=== PATIENT | male | born 1950 | race Caucasian/White ===

== ENCOUNTER 2017-05-03 14:36 | Observation (INO) | payer MEDICARE ==
[2017-05-03] MEDS ORDERED: ONDANSETRON 4 MG/2 ML VIAL IVP PRN (15:12)
[2017-05-03] MEDS ORDERED: PANTOPRAZOLE 40 MG TABLET PO STA (15:49)
[2017-05-03 15:50] LABS: Glucose,Whole Blood 144 mg/dL (75-99)
[2017-05-03] MEDS ORDERED: IPRATROPIUM-ALBUTEROL 3 ML NEB INHALATION PRN (16:01)
--- NOTE | 2017-05-03 16:01 | P.HPIM ---
History of Present Illness H&P Date: 05/03/17 Chief Complaint: Abdominal pain and chest pain 1 month This is a 66-year-old male with a known history of myocardial infarction, coronary artery disease with previous CABG and cardiac stents. Also history of peripheral vascular disease with stent in his left leg, hypertension, hyperlipidemia, diabetes mellitus, COPD, depression, PTSD, bladder and ureteral cancer in 2005. Patient was a direct admit from Dr. Perez's office. He reports having a burning-like sensation in the upper portion of his stomach radiating up into his chest. Symptoms have been intermittent over the last month. However, patient is started have worsening symptoms in the chest area. Also has been having some sweats. Has adjusted his diet. Symptoms were slightly worse with fatty foods. He denies any nausea or vomiting. Denies any fever or chills. Denies any bowel movement changes or urinary symptoms. Patient is still a smoker he smoking about a pack a day. His last stress test was approximately [address] Alford and he was told was negative. His last colonoscopy was in 2014 and was reported negative. He has never had EGD completed. And just recently had medications adjusted by his psychiatrist. They discontinued the Prozac and started patient on Abilify 5 mg daily. He reports that he has not taken the Abilify yet. He was supposed started today. I dose will be given now. Patient will be admitted for cardiac workup to evaluate the chest pain as well as the abdominal discomfort. Cardiology will be consulted. Check EKG troponin cardiac enzymes. Also will check abdominal ultrasound and amylase lipase and LFTs. Review of Systems Please refer to HPI otherwise unremarkable Past Medical History Past Medical History: Asthma, Coronary Artery Disease (CAD), Cancer, COPD, Diabetes Mellitus, Hyperlipidemia, Hypertension, Myocardial Infarction ([place]), Skin Disorder, Sleep Apnea/CPAP/BIPAP Additional Past Medical History / Comment(s): lower back pain with sciatica, hx bladder cancer, pt states skin disorder d/t exposure to agent orange in [place] Last Myocardial Infarction Date:: 1996 History of Any Multi-Drug Resistant Organisms: None Reported Past Surgical History: Bladder Surgery, Coronary Bypass/CABG, Heart Catheterization With Stent Additional Past Surgical History / Comment(s): heart stent x 2, aortogram Past Anesthesia/Blood Transfusion Reactions: No Reported Reaction Date of Last Stent Placement:: 2010 Past Psychological History: Anxiety Smoking Status: Current every day smoker Past Alcohol Use History: None Reported Past Drug Use History: None Reported - Past Family History Mother Family Medical History: Cancer Additional Family Medical History / Comment(s): lung cancer Medications and Allergies Home Medications Medication Instructions Recorded Confirmed Type ALPRAZolam [Xanax] 0.5 mg PO DAILY PRN 06/09/15 12/10/15 History ARIPiprazole [Abilify] 5 mg PO BID 06/09/15 12/10/15 History Aspirin 325 mg PO DAILY 06/09/15 12/10/15 History Atorvastatin [Lipitor] 40 mg PO DAILY 06/09/15 12/10/15 History Budesonide-Formot 160-4.5 Mcg 2 puff INHALATION BID 06/09/15 12/10/15 History [Symbicort 160-4.5 Mcg Inhaler] Clopidogrel [Plavix] 75 mg PO DAILY 06/09/15 12/10/15 History Doxazosin Mesylate 8 mg PO BID 06/09/15 12/10/15 History Enalapril Maleate [Vasotec] 5 mg PO BID 06/09/15 12/10/15 History Fenofibrate [Lofibra] 160 mg PO DAILY 06/09/15 12/10/15 History Insulin Aspart [NovoLOG] 10 unit SQ AC-SUPPER 06/09/15 12/10/15 History Insulin Glargine [Lantus] 70 unit SQ BID 06/09/15 12/10/15 History Metoprolol Tartrate [Lopressor] 25 mg PO BID 06/09/15 12/10/15 History Sertraline [Zoloft] 50 mg PO BID 06/09/15 12/10/15 History Tiotropium [place] [Spiriva] 2 puff IH BID 06/09/15 12/10/15 History Albuterol Inhaler [Ventolin Hfa 1 - 2 puff INHALATION Q6HR PRN 11/11/15 History Inhaler] Albuterol Nebulized [Ventolin 2.5 mg INHALATION Q6H 11/11/15 12/10/15 History Nebulized] Testosterone Cypionate 100 mg IM Q21D 11/11/15 12/10/15 History [Depo-Testosterone] hydrOXYzine HCL 25 mg PO HS 11/11/15 12/10/15 History oxyCODONE-APAP 10-325MG [Percocet 1 tab PO Q6HR PRN 11/11/15 12/10/15 History 10-325 mg] traZODone HCL [Desyrel] 50 mg PO HS 11/11/15 12/10/15 History Allergies Allergy/AdvReac Type Severity Reaction Status Date / Time cephalexin monohydrate Allergy Unknown Verified 12/10/15 07:36 [From Keflex] divalproex sodium Allergy Unknown Verified 12/10/15 07:36 erythromycin base Allergy Unknown Verified 12/10/15 07:36 fluvoxamine maleate Allergy Unknown Verified 12/10/15 07:36 [From Luvox] mirtazapine Allergy Unknown Verified 12/10/15 07:36 moxifloxacin HCl Allergy Itching Verified 12/10/15 07:36 [From Avelox] paroxetine HCl [From Paxil] Allergy Unknown Verified 12/10/15 07:36 Penicillins Allergy Unknown Verified 12/10/15 07:36 Sulfa (Sulfonamide Allergy Unknown Verified 12/10/15 07:36 Antibiotics) venlafaxine Allergy Unknown Verified 12/10/15 07:36 zolpidem Allergy Unknown Verified 12/05/15 10:56 Physical Exam Vitals: Intake and Output 05/03/17 05/03/17 05/03/17 06:59 14:59 22:59 Other: Weight 117.2 kg Patient Weight 05/04/17 06:59 Weight 117.2 kg Head normocephalic Neck supple Lungs wheezes noted in the right lung hunter Heart regular rate and rhythm S1-S2, no rub or gallop Abdomen is soft epigastric tenderness nondistended positive bowel sounds no hepatosplenomegaly Extremities no edema Neuro alert and orientated to 3 Assessment and Plan Assessment: 1. Chest pain: Check cardiac enzymes every 8 hours 3 sets. Check EKG, check chest x-ray, place patient on telemetry. Consult cardiology. 2. Epigastric abdominal pain: Check abdominal ultrasound. Check amylase and lipase and LFTs. Patient has never had an EGD 3. Nicotine dependence: Discussed smoking cessation for greater than 3 minutes. Add nicotine patch 4. History of myocardial infarction, coronary artery disease with previous cardiac stents and CABG 5. History of peripheral vascular disease with stent in the left lower extremity 6. COPD: Stable. Continue inhalers and nebulizer treatments 7. Chronic back pain area did resume home pain medication 8. Essential hypertension: Resume home blood pressure medications 9. Hyperlipidemia 10. History of bladder and ureter cancer status post surgical treatment in 2005 11. Diabetes mellitus type 2: Resume home insulin and add sliding scale coverage 12. Posttraumatic stress disorder: Resume Abilify GI prophylaxis Protonix and DVT prophylaxis subcu heparin Time with Patient: Greater than 30 (Greater than 50% of the total time spent in counseling and coordination of care.I performed an examination of the patient and discussed their management with the physician Massage Operator. I have reviewed the Physician Massage Operator's notes and agree with the documented findings and plan of care)
[2017-05-03 16:45] LABS: Basophils % (A) 1 %; CH 31.9; Eosinophils # (A) 0.2 k/uL (0-0.7); Eosinophils % (A) 2 %; HCT 50.2 % (39.0-53.0); HDW 2.56; HGB 16.3 gm/dL (13.0-17.5); Luc # (Auto) 0.09; Luc % (Auto) 1; Lymphocytes # (A) 1.8 k/uL (1.0-4.8); Lymphocytes % (A) 20 %; MCH 31.5 pg (25.0-35.0); MCHC 32.5 g/dL (31.0-37.0); MCV 97.1 fL (80.0-100.0); Mean Platelet Volume 8.6; Monocytes # (A) 0.4 k/uL (0-1.0); Monocytes % (A) 5 %; Neutrophils # (A) 6.3 k/uL (1.3-7.7); Neutrophils % (A) 71 %; RBC 5.18 m/uL (4.30-5.90); RDW 14.8 % (11.5-15.5); WBC 8.8 k/uL (3.8-10.6)
[2017-05-03 16:51] LABS: ALT 68 U/L (21-72); AST 41 U/L (17-59); Alkaline Phosphatase 44 U/L (38-126); Amylase 55 U/L (30-110); Anion Gap 10 mmol/L; Blood Urea Nitrogen 22 mg/dL (9-20); Calcium 9.7 mg/dL (8.4-10.2); Carbon Dioxide 24 mmol/L (22-30); Chloride 107 mmol/L (98-107); Glucose 130 mg/dL (74-99); Non-African American GFR(MDRD) 51 (>60 ml/min/1.73 sqM); Potassium 4.5 mmol/L (3.5-5.1); Sodium 141 mmol/L (137-145); Total Bilirubin 0.4 mg/dL (0.2-1.3); Total Protein 7.1 g/dL (6.3-8.2)
[2017-05-03 17:02] LABS: Creatine Kinase 56 U/L (55-170)
[2017-05-03 17:15] LABS: Creatine Kinase MB 1.6 ng/mL (0.0-2.4); Troponin I <0.012 ng/mL (0.000-0.034)
[2017-05-03] MEDS ORDERED: NITROGLYCERIN SL TABS 0.4 MG TAB SUBLINGUAL PRN (17:28)
[2017-05-03] MEDS: NICOTINE 21MG/24HR PATCH TRANSDERM SCH (17:41)
[2017-05-03] MEDS: HEPARIN SODIUM,PORCINE 5,000 UNIT/ML 1 ML VIAL SQ SCH (19:53)
[2017-05-03] MEDS: ARIPiprazole 5 MG TAB PO SCH (19:53)
[2017-05-03] MEDS: DOCUSATE 100 MG CAP PO SCH (19:53)
[2017-05-03] MEDS: METOPROLOL TARTRATE 25 MG TAB PO SCH (19:54)
[2017-05-03] MEDS: LISINOPRIL 10 MG TAB PO SCH (19:54)
[2017-05-03] MEDS: SYMBICORT 160-4.5 MCG INHALER INHALATION SCH (20:36)
[2017-05-03] MEDS: IPRATROPIUM-ALBUTEROL 3 ML NEB INHALATION SCH (20:37)
[2017-05-03] MEDS ORDERED: DOXAZOSIN 4 MG TAB PO SCH (21:00)
[2017-05-03] MEDS ORDERED: traZODone HCL 50 MG TAB PO SCH (21:00)
[2017-05-03] MEDS ORDERED: hydrOXYzine HCL 25 MG TAB PO SCH (21:00)
[2017-05-03 21:07] LABS: Glucose,Whole Blood 204 mg/dL (75-99)
[2017-05-03] MEDS: INSULIN GLARGINE 100 UNIT/ML 10 ML VIAL SQ SCH (21:19)
[2017-05-03] MEDS: INSULIN LISPRO (humaLOG) 300 UNIT/3 ML VIAL SQ SCH (21:20)
[2017-05-03] MEDS: oxyCODONE-APAP 10-325MG 1 EACH TAB PO PRN (22:30)
[2017-05-04 00:09] VITALS: RESP 18
[2017-05-04 00:17] LABS: Creatine Kinase 56 U/L (55-170)
[2017-05-04 00:28] LABS: Creatine Kinase MB 1.4 ng/mL (0.0-2.4); Troponin I <0.012 ng/mL (0.000-0.034)
[2017-05-04 06:46] LABS: Glucose,Whole Blood 99 mg/dL (75-99)
[2017-05-04] MEDS: oxyCODONE-APAP 10-325MG 1 EACH TAB PO PRN (06:48)
[2017-05-04] MEDS: SYMBICORT 160-4.5 MCG INHALER INHALATION SCH (07:17)
[2017-05-04] MEDS: IPRATROPIUM-ALBUTEROL 3 ML NEB INHALATION SCH ×2 (07:17→11:12)
[2017-05-04] MEDS ORDERED: PANTOPRAZOLE 40 MG TABLET PO SCH (07:30)
[2017-05-04 07:43] LABS: Basophils # (A) 0.1 k/uL (0-0.2); Basophils % (A) 1 %; CH 32.6; CHCM 33.6; Eosinophils # (A) 0.2 k/uL (0-0.7); Eosinophils % (A) 2 %; HCT 47.6 % (39.0-53.0); HDW 2.69; HGB 15.4 gm/dL (13.0-17.5); Luc # (Auto) 0.08; Luc % (Auto) 1; Lymphocytes % (A) 25 %; MCH 31.5 pg (25.0-35.0); MCHC 32.3 g/dL (31.0-37.0); MCV 97.5 fL (80.0-100.0); Mean Platelet Volume 7.7; Monocytes # (A) 0.4 k/uL (0-1.0); Monocytes % (A) 5 %; Neutrophils # (A) 5.2 k/uL (1.3-7.7); Neutrophils % (A) 66 %; RBC 4.88 m/uL (4.30-5.90); RDW 13.3 % (11.5-15.5); WBC 7.9 k/uL (3.8-10.6); WBC (Perox) 7.79
[2017-05-04] MEDS ORDERED: NON-FORMULARY DRUG (Tiotropium Bromide [Spiriva] 1 CAP) INHALATION SCH (08:00)
[2017-05-04 08:01] LABS: Calcium 9.8 mg/dL (8.4-10.2); Creatine Kinase 60 U/L (55-170); Potassium 4.3 mmol/L (3.5-5.1); Total Bilirubin 0.3 mg/dL (0.2-1.3); Total Protein 6.3 g/dL (6.3-8.2)
--- NOTE | 2017-05-04 08:05 | XR ---
EXAMINATION TYPE: XR chest 2V DATE OF EXAM: 05/03/2017 COMPARISON: Prior chest x-ray 11/16/2009 HISTORY: Chest pain TECHNIQUE: Frontal and lateral views of the chest are obtained. FINDINGS: There is no focal air space opacity, pleural effusion, or pneumothorax seen. The cardiac silhouette size is stable. Patient is post median sternotomy. There are overlying cardiac leads. Lung s are hyperinflated possibly due to COPD. The osseous structures are intact. IMPRESSION: No acute cardiopulmonary process.
[2017-05-04 08:13] LABS: Creatine Kinase MB 1.6 ng/mL (0.0-2.4); Troponin I <0.012 ng/mL (0.000-0.034)
--- NOTE | 2017-05-04 08:37 | US ---
EXAMINATION TYPE: US abdomen complete DATE OF EXAM: 05/04/2017 COMPARISON: NONE CLINICAL HISTORY: Abdominal pain. EXAM MEASUREMENTS: Liver Length: 22.3 cm Gallbladder Wall: 0.1 cm CBD: 0.2 cm Spleen: 12.8 cm Right Kidney: 12.7 x 5.7 x 5.3 cm Left Kidney: 9.7 x 4.9 x 5.0 cm Patient of large body habitus carrying most of his weight in his abdomen. Extensive overlying bowel gas Pancreas: not visualized Liver: unable to penetrate, hyperechoic coarsened echotexture, enlarged Gallbladder: wnl Evidence for sonographic Iniguez's sign: no CBD: wnl Spleen: wnl Right Kidney: wnl Left Kidney: measures small compared to right, lobular contour Upper IVC: wnl Abd Aorta: unable to visualized due to large abdomen and overlying bowel gas The intrahepatic portion of the IVC and proximal abdominal aorta are within normal limits. There is no evidence of cholelithiasis. Common bile duct is unremarkable. The spleen is unremarkable. Kidne ys are symmetric and free of hydronephrosis. No renal lesions are seen. IMPRESSION: 1. At least moderate if not severe hepatic steatosis. 2. Limited visualization of the abdominal aorta and nonvisualization of the pancreas due to overlyin g bowel gas.
[2017-05-04] MEDS ORDERED: FAMOTIDINE 20 MG TAB PO SCH (09:00)
[2017-05-04] MEDS ORDERED: ATORVASTATIN 40 MG TAB PO SCH (09:00)
[2017-05-04] MEDS ORDERED: ASPIRIN 325 MG TAB PO SCH (09:00)
[2017-05-04] MEDS ORDERED: CLOPIDOGREL 75 MG TAB PO SCH (09:00)
[2017-05-04] MEDS ORDERED: FENOFIBRATE 160 MG TAB PO SCH (09:00)
[2017-05-04] MEDS: INSULIN LISPRO (humaLOG) 300 UNIT/3 ML VIAL SQ SCH ×2 (10:19→11:31)
[2017-05-04 10:29] LABS: Glucose,Whole Blood 114 mg/dL (75-99)
[2017-05-04] MEDS ORDERED: ACETAMINOPHEN TAB 325 MG TAB PO PRN (10:52)
[2017-05-04 11:12] VITALS: BP 117/56; TEMP 97.8
[2017-05-04] MEDS: DOCUSATE 100 MG CAP PO SCH (11:12)
[2017-05-04] MEDS: ARIPiprazole 5 MG TAB PO SCH (11:12)
[2017-05-04] MEDS: NICOTINE 21MG/24HR PATCH TRANSDERM SCH (11:15)
[2017-05-04] MEDS: INSULIN GLARGINE 100 UNIT/ML 10 ML VIAL SQ SCH (11:17)
[2017-05-04 11:25] VITALS: PULSE 56
[2017-05-04] MEDS: HEPARIN SODIUM,PORCINE 5,000 UNIT/ML 1 ML VIAL SQ SCH (11:31)
--- NOTE | 2017-05-04 11:47 | CONS ---
CONSULTATION Mr. Romero is a 66-year-old male with a known history of coronary artery disease, who presented with abdominal discomfort radiating to the chest. He has underwent coronary bypass grafting in 1996 with single saphenous vein graft to the right coronary artery and subsequently underwent stenting of his mid LAD in 2003 and proximal LAD in 2010 using a drug-eluting stent. He has been complaining of the abdominal discomfort going on for the last few days and worse yesterday with some radiation to the chest. The discomfort is different from his anginal pain. He denies any dizziness or palpitation. He denies any syncope. He has chronic dyspnea on exertion. His activity is limited. He feels fatigued. He has no significant peripheral edema. No PND, orthopnea. He has underwent an echocardiogram in December of this year that revealed ejection fraction 55% with a mild mitral regurgitation. He has underwent a stress test performed in November that showed a partially reversible inferoapical wall defect that could represent soft tissue attenuation. The possibility of cardiac catheterization was discussed with the patient, who was in favor of continuing medical therapy. His coronary risk factors are positive for hypertension, hyperlipidemia, peripheral vascular disease, and diabetes mellitus in addition to chronic tobacco use. MEDICATIONS: His medication at home include: 1. Metoprolol tartrate 25 mg twice a day. 2. Insulin. 3. Fenofibrate. 4. Enalapril. 5. Doxazosin. 6. Colace. 7. Plavix. 8. Lipitor 40 mg daily. 9. Aspirin once a day. 10.Albuterol. 11.In addition to Abilify. REVIEW OF SYSTEMS: RESPIRATORY system: He has dyspnea on exertion with chronic wheezing and occasional cough. GI system: He has the abdominal pain and the heartburn. No recent GI bleeding. No peptic ulcer disease. system: No dysuria or hematuria. Nervous system: No history of seizure. PAST MEDICAL HISTORY: Past surgical history remarkable for coronary artery bypass grafting, percutaneous revascularization, lower extremities revascularization. Past medical history remarkable for history of depression and anxiety. PHYSICAL EXAMINATION: He is a 66-year-old male, alert, oriented, in no apparent distress. Blood pressure 148/70 with a heart in the 60s. HEAD: Normocephalic. Eyes sclerae nonicteric. Neck good upstroke. No bruit. No jugular distention. Lungs decreased air exchange with scattered rhonchi. No wheezes heart rate rhythm S1, S2. No S3 with systolic murmur is heard at the base. No diastolic murmur. No rub. ABDOMEN: Soft, obese, positive bowel sounds. Mild generalized tenderness in the right upper and left upper quadrant. EXTREMITIES: No edema. Decreased distal pulses. LAB DATA: Ultrasound of the abdomen showed severe hepatic steatosis. Troponin of less than 0.012 for 3 samples. BUN creatinine 24 and 1.48, potassium 4.3, hemoglobin of 15.4, white blood cell of 7.9. EKG revealed a sinus mechanism with a normal axis and no acute changes. A chest x-ray shows no acute infiltrate. IMPRESSION: 1. Abdominal discomfort with some radiation to the chest. No clear evidence to suggest cardiac etiology. 2. History of coronary artery disease status post bypass grafting and percutaneous revascularization. 3. History of peripheral vascular disease. 4. Hypertension. 5. Hyperlipidemia. 6. Diabetes mellitus. 7. Chronic tobacco use. RECOMMENDATION: From the cardiac standpoint, no further cardiac workup is needed at this time. Will await further workup regarding his abdominal findings. He will be followed in the office as scheduled. Thank you for this consult. We will follow with you. MMODL / IJN: [id number] /
[2017-05-04] MEDS: LISINOPRIL 10 MG TAB PO SCH (12:07)
[2017-05-04] MEDS: METOPROLOL TARTRATE 25 MG TAB PO SCH (12:07)
[2017-05-04 12:16] LABS: Glucose,Whole Blood 122 mg/dL (75-99)
--- NOTE | 2017-05-05 10:45 | P.DS ---
Providers Date of admission: 05/03/17 15:03 Expected date of discharge: 05/04/17 Attending physician: Iván Perez Consults: 05/03/17 15:09 Consult Physician Routine Consulting Provider: Iglesia Johnson Consult Reason/Comments: chest pain Do you want consulting provider notified?: Yes Primary care physician: Iván Perez [facility] Course: Discharge diagnosis Patient left AGAINST MEDICAL ADVICE 1. Chest pain: Cardiac enzymes negative 3 sets. Patient seen and evaluated by cardiology. No further cardiac workup needed. [place] symptoms were related more to his abdominal discomfort or chest x-ray negative 2. Epigastric abdominal pain: Amylase lipase and LFTs within normal range. Abdominal ultrasound at least moderate if not severe hepatic steatosis 3. Nicotine dependence: Discussed smoking cessation for greater than 3 minutes. Add nicotine patch 4. History of myocardial infarction, coronary artery disease with previous cardiac stents and CABG 5. History of peripheral vascular disease with stent in the left lower extremity 6. COPD: Stable. Continue inhalers and nebulizer treatments 7. Chronic back pain area did resume home pain medication 8. Essential hypertension: Resume home blood pressure medications 9. Hyperlipidemia 10. History of bladder and ureter cancer status post surgical treatment in 2005 11. Diabetes mellitus type 2: Resume home insulin and add sliding scale coverage 12. Posttraumatic stress disorder: Resume [facility] course This is a 66-year-old male with a known history of myocardial infarction, coronary artery disease with previous CABG and cardiac stents. Also history of peripheral vascular disease with stent in his left leg, hypertension, hyperlipidemia, diabetes mellitus, COPD, depression, PTSD, bladder and ureteral cancer in 2005. Patient was a direct admit from Dr. Perez's office. He reports having a burning-like sensation in the upper portion of his stomach radiating up into his chest. Symptoms have been intermittent over the last month. However, patient is started have worsening symptoms in the chest area. Also has been having some sweats. Has adjusted his diet. Symptoms were slightly worse with fatty foods. He denies any nausea or vomiting. Denies any fever or chills. Denies any bowel movement changes or urinary symptoms. Patient is still a smoker he smoking about a pack a day. His last stress test was approximately [address] Alford and he was told was negative. His last colonoscopy was in 2014 and was reported negative. He has never had EGD completed. And just recently had medications adjusted by his psychiatrist. They discontinued the Prozac and started patient on Abilify 5 mg daily. He reports that he has not taken the Abilify yet. He was supposed started today. I dose will be given now. Patient will be admitted for cardiac workup to evaluate the chest pain as well as the abdominal discomfort. Cardiology will be consulted. Check EKG troponin cardiac enzymes. Also will check abdominal ultrasound and amylase lipase and LFTs. Troponins were negative 3 sets. Patient seen evaluated by cardiology. They felt that there is no further need of cardiac workup. I recommended further workup for GI symptoms. Patient was following up with cardiology as scheduled outpatient. Patient was given a be discharged later this afternoon however, he left AGAINST MEDICAL ADVICE before Dr. Perez to get back to the hospital to discharge Please note that I am dictating this report for Dr. Perez. I did not see her exam and the patient the day he left the hospital Patient Condition at Discharge: Stable Plan - Discharge Summary Discharge Rx Participant: No New Discharge Prescriptions: No Action Insulin Glargine [Lantus] 70 unit SQ BID Doxazosin Mesylate 8 mg PO HS Budesonide-Formot 160-4.5 Mcg [Symbicort 160-4.5 Mcg Inhaler] 2 puff INHALATION RT-BID Atorvastatin [Lipitor] 40 mg PO DAILY Fenofibrate [Lofibra] 160 mg PO DAILY Metoprolol Tartrate [Lopressor] 25 mg PO BID Enalapril Maleate [Vasotec] 5 mg PO BID Clopidogrel [Plavix] 75 mg PO DAILY Aspirin 325 mg PO DAILY Tiotropium [place] [Spiriva] 1 cap INHALATION RT-DAILY Insulin Aspart [NovoLOG] See Protocol SQ AC-TID oxyCODONE-APAP 10-325MG [Percocet 10-325 mg] 1 tab PO Q8H PRN PRN Reason: Pain traZODone HCL [Desyrel] 50 mg PO HS Albuterol Nebulized [Ventolin Nebulized] 2.5 mg INHALATION RT-QID PRN PRN Reason: Shortness Of Breath Albuterol Inhaler [Ventolin Hfa Inhaler] 1 - 2 puff INHALATION RT-QID PRN PRN Reason: Shortness Of Breath hydrOXYzine HCL 25 mg PO HS Nitroglycerin Sl Tabs [Nitrostat] 0.4 mg SUBLINGUAL Q5M PRN PRN Reason: Chest Pain Docusate [Colace] 100 mg PO BID Discharge Medication List Aspirin 325 mg PO DAILY 06/09/15 [History] Atorvastatin [Lipitor] 40 mg PO DAILY 06/09/15 [History] Budesonide-Formot 160-4.5 Mcg [Symbicort 160-4.5 Mcg Inhaler] 2 puff INHALATION RT-BID 06/09/15 [History] Clopidogrel [Plavix] 75 mg PO DAILY 06/09/15 [History] Doxazosin Mesylate 8 mg PO HS 06/09/15 [History] Enalapril Maleate [Vasotec] 5 mg PO BID 06/09/15 [History] Fenofibrate [Lofibra] 160 mg PO DAILY 06/09/15 [History] Insulin Aspart [NovoLOG] See Protocol SQ AC-TID 06/09/15 [History] Insulin Glargine [Lantus] 70 unit SQ BID 06/09/15 [History] Metoprolol Tartrate [Lopressor] 25 mg PO BID 06/09/15 [History] Tiotropium [place] [Spiriva] 1 cap INHALATION RT-DAILY 06/09/15 [History] Albuterol Inhaler [Ventolin Hfa Inhaler] 1 - 2 puff INHALATION RT-QID PRN [History] Albuterol Nebulized [Ventolin Nebulized] 2.5 mg INHALATION RT-QID PRN 11/11/15 [ History] hydrOXYzine HCL 25 mg PO HS 11/11/15 [History] oxyCODONE-APAP 10-325MG [Percocet 10-325 mg] 1 tab PO Q8H PRN 11/11/15 [History] traZODone HCL [Desyrel] 50 mg PO HS 11/11/15 [History] Docusate [Colace] 100 mg PO BID 05/03/17 [History] Nitroglycerin Sl Tabs [Nitrostat] 0.4 mg SUBLINGUAL Q5M PRN 05/03/17 [History] Follow up Appointment(s)/Referral(s): Leodan Alford MD [STAFF PHYSICIAN] - As Needed Iván Perze MD [Primary Care Provider] - 3 Days Patient Instructions/Handouts: Chest Pain (GEN), Acute Abdominal Pain (GEN) Discharge Disposition: HOME SELF-CARE
== END 2017-05-04 14:35 | disposition home or self-care (01) ==
LOC: 3OBS 15:03
PROVIDERS: ADMIT Internal Medicine; ATTEND Internal Medicine
DX: R07.89 Other chest pain (principal); R10.13 Epigastric pain; I25.10 Atherosclerotic heart disease of native coronary artery without angina pectoris; I10 Essential (primary) hypertension; E11.51 Type 2 diabetes mellitus with diabetic peripheral angiopathy without gangrene; Z95.820 Peripheral vascular angioplasty status with implants and grafts; J44.9 Chronic obstructive pulmonary disease, unspecified; G89.29 Other chronic pain; M54.5 Low back pain; E78.5 Hyperlipidemia, unspecified; F17.200 Nicotine dependence, unspecified, uncomplicated; F43.10 Post-traumatic stress disorder, unspecified; F32.9 Major depressive disorder, single episode, unspecified; F41.9 Anxiety disorder, unspecified; Z85.51 Personal history of malignant neoplasm of bladder; Z95.5 Presence of coronary angioplasty implant and graft; Z95.1 Presence of aortocoronary bypass graft; I25.2 Old myocardial infarction; Z85.54 Personal history of malignant neoplasm of ureter; Z79.02 Long term (current) use of antithrombotics/antiplatelets; Z79.82 Long term (current) use of aspirin; Z79.4 Long term (current) use of insulin; Z79.51 Long term (current) use of inhaled steroids; Z79.899 Other long term (current) drug therapy; Z88.0 Allergy status to penicillin; Z88.1 Allergy status to other antibiotic agents; Z88.2 Allergy status to sulfonamides; Z88.8 Allergy status to other drugs, medicaments and biological substances
CPT/HCPCS: 96374; 96375; 94640 ×4; 80053 ×2; 82150; 82550 ×2; 82553 ×2; 83690; 84484 ×2; 85025 ×2; 83036; 71020; 76700; G0378 ×2; G0379; S4990 ×2; J1644; J2405; 93005

== ENCOUNTER → 2017-07-07 | Outpatient (CLI) | payer MEDICARE ==
--- NOTE | 2017-07-08 07:08 | US ---
EXAMINATION TYPE: US venous doppler duplex LE LT DATE OF EXAM: 07/07/2017 5:18 PM COMPARISON: NONE CLINICAL HISTORY: M79.62 Pain, Swelling R22.42. SIDE PERFORMED: Left TECHNIQUE: The lower extremity deep venous system is examined utilizing real time linear array sonog hal with graded compression, doppler sonography and color-flow sonography. VESSELS IMAGED: External Iliac Vein (EIV) Common Femoral Vein Deep Femoral Vein Greater Saphenous Vein * Femoral Vein Popliteal Vein Small Saphenous Vein * Proximal Calf Veins (* superficial vessels) Grayscale, color doppler, spectral doppler imaging performed of the deep veins of the lower extremiti es. There is normal flow, compressibility, vascular waveforms. Left Leg: Negative for DVT No evidence of DVT IMPRESSION: No sonographic evidence of deep venous thrombosis within the left lower extremity.
== END | disposition home or self-care (01) ==
LOC: RADUSMAIN 16:31
PROVIDERS: ATTEND Internal Medicine
DX: R22.42 Localized swelling, mass and lump, left lower limb (principal)

== ENCOUNTER → 2017-09-15 | Outpatient (CLI) | payer MEDICARE ==
--- NOTE | 2017-09-15 17:04 | PN ---
PROGRESS NOTE This is a 66-year-old gentleman who has been followed in the sleep center for treatment of obstructive sleep apnea-hypopnea syndrome. Patient has continued to use his CPAP equipment every night for the whole night. Last time I saw this patient was about a year and a half ago. He has no snoring with the machine. [place] Sleepiness Scale today is 10. I checked the patient's CPAP unit. Usage is 100% of the time for more than 4 hours. Average usage is 8 hours 24 minutes. Sometimes leak from the mask is up to 7%. Apnea- hypopnea index is only 2.8 for the last 30 days and only 0.9 for the last 7 days, so totally normal range. MEDICATIONS: 1. Aspirin. 2. Plavix. 3. . 4. Enalapril. 5. Metoprolol. 6. Fenofibrate. 7. Symbicort. 8. Lantus. 9. Trazodone. 10.Hydroxyzine. 11.Atorvastatin. 12.Doxazosin. 13.Spiriva. 14.NovoLog. 15.Albuterol. PHYSICAL EXAMINATION: GENERAL A pleasant gentleman without distress. VITAL SIGNS: BP 136/76, HR 78, RR 16, height 5 feet 11 inches, weight 265, BMI 36.9. Patient's weight has increased by about 9 pounds since previous visit. HEENT: [place]. Evaluation of oropharynx showed tongue protrudes midline; status post UPPP. NECK: Supple. No JVD. Thyroid is not palpable. LUNGS: Clear to percussion and to auscultation. Good air exchange. No wheezing or rhonchi. HEART: S1, S2 regular. No murmurs, gallops or rubs. ABDOMEN: Obese. EXTREMITIES : No clubbing or cyanosis. 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 Cranial nerves 2 to 7 intact. There is no fasciculation or atrophy. noted. No focal deficits observed. IMPRESSION: 1. Obstructive sleep apnea-hypopnea syndrome. Patient demonstrated 100% compliance with treatment, benefitting from treatment. CPAP pressure is 11 cm of water. 2. Obesity. Patient's weight has increased since his previous visit. 3. Coronary artery disease. 4. Diabetes mellitus. 5. Chronic obstructive pulmonary disease. 6. History of diastolic dysfunction. 7. History of post-traumatic stress disorder. 8. Status post angioplasty for the left lower leg. 9. Status post UPPP. PLAN: 1. Continue treatment with CPAP every night for the whole night. 2. Losing weight. 3. Sleep hygiene with regular time in bed for at least 8 hours. 4. No driving if feeling any sleepiness. 5. Prescription for all necessary CPAP supplies, including mask, tube, filters. Thank you very much for allowing me to participate in the management of your patient. Sincerely, Michael Severino MD, PhD, FAASM Diplomat of [employer] Cabinet Installer [facility] [place] MMODL / IJN: [id number] /
== END | disposition home or self-care (01) ==
LOC: SLEEP 13:39
PROVIDERS: ATTEND Internal Medicine
DX: G47.33 Obstructive sleep apnea (adult) (pediatric) (principal); E66.9 Obesity, unspecified; I25.10 Atherosclerotic heart disease of native coronary artery without angina pectoris; E11.9 Type 2 diabetes mellitus without complications; J44.9 Chronic obstructive pulmonary disease, unspecified; Z86.79 Personal history of other diseases of the circulatory system; Z86.59 Personal history of other mental and behavioral disorders; Z98.890 Other specified postprocedural states; Z79.82 Long term (current) use of aspirin; Z79.02 Long term (current) use of antithrombotics/antiplatelets; Z79.899 Other long term (current) drug therapy; Z99.89 Dependence on other enabling machines and devices; Z79.4 Long term (current) use of insulin; Z68.36 Body mass index [BMI] 36.0-36.9, adult

== ENCOUNTER → 2017-10-26 | Outpatient (CLI) | payer MEDICARE ==
--- NOTE | 2017-10-26 15:57 | MR ---
EXAMINATION TYPE: MR louise wo con DATE OF EXAM: 10/26/2017 1:42 PM COMPARISON: NONE HISTORY: Pain in thoracic spine,Spondylosis Multiplanar MultiSpin echo imaging of the cervical spine was performed. Comparison: none C2-C3: No evidence for degenerative disc disease. No disc bulge/herniation or protrusion. No Canal stenosis. Foramina are patent bilaterally. C3-C4: Mild to moderate disc desiccation. Posterocentral disc bulge with encapsulating spur resulting in disc endplate complex. Effacement of the ventral thecal sac. Mild right foraminal encroachment no heidy. No evidence for central stenosis. C4-C5: Mild to moderate disc desiccation. Posterocentral disc bulge with encapsulating spur resulting in disc endplate complex. Effacement of the ventral thecal sac. Mild right foraminal encroachment no heidy. No evidence for central stenosis. C5-C6: Moderate disc desiccation. Posterocentral disc bulge with encapsulating spur resulting in disc endplate complex. Effacement of the ventral thecal sac resulting in mild central stenosis. Left fora maxime encroachment noted. C6-C7: Mild disc desiccation. Extruded left paracentral disc herniation with disc material extending posterior to the C6 vertebral segment towards the left of midline. Sequestered component suspected me asuring 6.4 mm in length. Lateral recess stenosis and foraminal encroachment noted. C7-T1: No evidence for degenerative disc disease. No disc bulge/herniation or protrusion. No Canal stenosis. Foramina are patent bilaterally. Cervical segments are intact. There is normal alignment. Cervical spinal cord is of normal signal. Craniovertebral junction relationships are within normal limits. IMPRESSION: 1. Multilevel degenerative disc disease. 2. Extruded disc herniation paracentrally and to the left at C6-7 as discussed above. Sequestered com ponent suspected. 3. Multilevel disc bulging with disc endplate complex and foraminal encroachment. EXAMINATION TYPE: MR dani cabrera con DATE OF EXAM: 10/26/2017 1:42 PM COMPARISON: NONE HISTORY: Pain in thoracic spine,Spondylosis Multiplanar MultiSpin echo imaging of the thoracic spine was performed. Disc spaces: No evidence for herniation protrusion or significant degenerative disc disease. Spinal canal: No evidence for canal stenosis. No intrinsic or extrinsic lesion. Thoracic spinal cord: Thoracic spinal cord is of normal caliber and signal. Paraspinal soft tissues: No evidence for paraspinal mass. No destructive lesions seen. Vertebral segments: Moderate multilevel ventral spondylosis. No evidence for fracture or bony lesion. IMPRESSION: 1.Moderate multilevel ventral spondylosis. No disc herniation protrusion or central stenosis. No cord abnormality seen.
== END | disposition home or self-care (01) ==
LOC: RADMRIMAIN 12:46
PROVIDERS: ATTEND Neurological Surgery
DX: M50.223 Other cervical disc displacement at C6-C7 level (principal); M50.30 Other cervical disc degeneration, unspecified cervical region; M47.814 Spondylosis without myelopathy or radiculopathy, thoracic region; G89.29 Other chronic pain
CPT/HCPCS: 72141; 72146

== ENCOUNTER 2017-12-14 10:48 | Inpatient (IN) | payer MEDICARE ==
[~2017-12-14 10:48] MED LIST: ALPRAZolam 0.25 MG TAB PO PRN; ASPIRIN 325 MG TAB PO STA; ATORVASTATIN 80 MG TAB PO STA; NITROGLYCERIN SL TABS 0.4 MG TAB SUBLINGUAL PRN; SODIUM CHLORIDE 0.9% 1,000 ML in EMPTY BAG 1 BAG IV ONE
[2017-12-14 11:39] LABS: Glucose,Whole Blood 184 mg/dL (75-99)
[2017-12-14] MEDS ORDERED: VERAPAMIL 2.5 MG/ML 2 ML AMP ONE (12:30)
[2017-12-14] MEDS ORDERED: diphenhydrAMINE 50 MG/ML 1 ML VIAL ONE (12:32)
[2017-12-14] MEDS ORDERED: fentaNYL (PF) 50 MCG/ML 2 ML AMP ONE (12:32)
[2017-12-14] MEDS ORDERED: LIDOCAINE 2% INJ 20 MG/ML SQ ONE ×2 (12:33→12:35)
[2017-12-14] MEDS ORDERED: fentaNYL (PF) 50 MCG/ML 2 ML AMP IVP ONE (12:34)
[2017-12-14] MEDS ORDERED: diphenhydrAMINE 50 MG/ML 1 ML VIAL IVP ONE (12:34)
[2017-12-14] MEDS ORDERED: MIDAZOLAM 2 MG/2 ML VIAL ONE (12:36)
[2017-12-14] MEDS ORDERED: MIDAZOLAM 2 MG/2 ML VIAL IVP ONE (12:37)
[2017-12-14] MEDS ORDERED: VERAPAMIL SYRINGE (5 MG/10 ML) INTRAARTER ONE (12:39)
[2017-12-14] MEDS ORDERED: HEPARIN SODIUM 1,000 UN/ML (10ML VL) ONE (12:48)
[2017-12-14] MEDS ORDERED: HEPARIN SODIUM 1,000 UN/ML (10ML VL) IV ONE (12:49)
[2017-12-14] MEDS ORDERED: ONDANSETRON 4 MG/2 ML VIAL ONE (13:00)
[2017-12-14] MEDS ORDERED: ONDANSETRON 4 MG/2 ML VIAL IVP ONE (13:02)
[2017-12-14] MEDS ORDERED: BIVALIRUDIN 250 MG in SODIUM CHLORIDE 0.9% 50 ML IV ONE (13:08)
[2017-12-14] MEDS ORDERED: BIVALIRUDIN BOLUS 250 MG/50 ML IV ONE (13:08)
[2017-12-14] MEDS ORDERED: IOPAMIDOL-370 125ML BTL INJ ONE (13:13)
[2017-12-14] MEDS ORDERED: IOPAMIDOL-370 100ML BTL INJ ONE (13:32)
[2017-12-14] MEDS ORDERED: NITROGLYCERIN SL TABS 0.4 MG TAB SUBLINGUAL PRN ×2 (13:46→13:48)
[2017-12-14] MEDS ORDERED: ATROPINE SULFATE 0.1 MG/ML 10ML SYRINGE IV PRN (13:46)
[2017-12-14] MEDS ORDERED: MAG HYDROX/AL HYDROX/SIMETH 30 ML CUP PO PRN (13:46)
[2017-12-14] MEDS ORDERED: ZOLPIDEM 5 MG TAB PO PRN (13:46)
[2017-12-14] MEDS ORDERED: RX INFO: IV CONTRAST WAS GIVEN 1 EACH MISC MISCELLANE PRN (13:46)
[2017-12-14] MEDS ORDERED: ALBUTEROL NEBULIZED 2.5 MG/3 ML INHALATION PRN (13:48)
[2017-12-14 13:56] LABS: Glucose,Whole Blood 213 mg/dL (75-99)
[2017-12-14] MEDS ORDERED: ONDANSETRON 4 MG/2 ML VIAL IVP STA (14:00)
[2017-12-14] MEDS ORDERED: SODIUM CHLORIDE 0.9% 1,000 ML IV SCH (14:00)
--- NOTE | 2017-12-14 15:00 | CC ---
CARDIAC CATHETERIZATION REPORT Mr. Romero 67-year-old male with known history of coronary disease, history of peripheral vascular disease, history of hypertension, diabetes, chronic tobacco use, who presented with symptoms of chest discomfort. In view of his prior history and the pattern of his symptoms, recommendation made regarding cardiac catheterization. The procedures, risks and complications were discussed with the patient for sending and agreement. PROCEDURE: Patient was brought to laboratory animal care veterinarian in a fasting semi-sedated state after receiving fentanyl and Benadryl and achieving moderate conscious sedated state. Using Xylocaine anesthesia and Seldinger technique, a 6-Zambian sheath was introduced under left radial artery. Selective right and left angiography performed using 5-Zambian 4 bend right and left Dania catheter. Multiple views of the coronary artery including hemiaxial views obtained. Following that a 6-Zambian right coronary bypass graft catheter was used to cannulate the saphenous vein graft to the right coronary artery. Images of the grafts were obtained. Following the catheter removed. Images were reviewed. FINDINGS: 1. Left Main: This is a large-sized vessel bifurcating left circumflex, left anterior descending artery. Left main coronary artery has no evidence of high-grade stenosis. 2. Left Anterior Descending Artery: This is a large-sized vessel reaching toward the apex with a wraparound apex segment. The left anterior descending artery in the stented segment in the proximal and mid area has mild intimal restenoses of about 20 to 30%. There is a plaque at the bifurcation of the diagonal branch of about 50%. The rest of the vessel has no high-grade stenosis. 3. Left Circumflex: This is a nondominant vessel giving rise to 2 large obtuse marginal branch. The left circumflex has mild intimal disease to 20 to 30% without any evidence of high-grade stenosis. 4. Right Coronary Artery: This vessel is totally occluded proximally with no antegrade flow. 5. Saphenous Vein Graft To The Right Coronary Artery: The proximal and distal anastomotic site are patent. The flow into the PDA is brisk. The proximal segment of the body of the graft has an eccentric lesion of about 70%. The rest of the vessel has no high-grade stenosis. 6. Left Ventriculogram: The left ventriculogram was not performed. CONCLUSION: 1. Chronic occluded right coronary artery. 2. Patent saphenous vein graft to the right coronary artery with significant stenosis in the proximal segment of the body of the graft. 3. Mild to moderate disease in the LAD and the left circumflex. RECOMMENDATION: In view of finding anatomy I recommend proceeding with angioplasty and stenting of the saphenous vein graft to the right coronary artery. The procedures, risks and complications were discussed with the patient who is in full understanding and agreement. MMBRISEIDA / EARLE: [id number] /
--- NOTE | 2017-12-14 15:06 | PTCA ---
PERCUTANEOUSTRANS CORORONARY ANGIOGRAPHY Ms. Romero is a 67-year-old male with known history of hypertension, hyperlipidemia, history of diabetes mellitus and coronary artery disease, who presented with symptoms of angina pectoris. He underwent cardiac catheterization, was found to have significant obstructive disease involving the proximal segment of the body of the saphenous vein graft to the right coronary artery. In view of that, recommendation was made regarding angioplasty and stenting. The procedure as well as risks and complications were discussed with the patient who is in full understanding and agreement. PROCEDURE: Attempt to cannulate the proximal anastomotic site of the graft using a 6-Amharic right coronary bypass graft guiding catheter were unsuccessful. That catheter was removed and a 6-Amharic multipurpose B2 guiding catheter was introduced. After cannulating the ostium, a 0.014 advanced medium weight J-wire was advanced across the lesion and positioned distally. Then a 3.25 x 15 mm Xience Alpine stent was advanced, deployed and it was dilated at 16 atmospheres. After the last inflation, after appropriate wait, the balloon and the guide wire were withdrawn back in the guiding catheter. Images were obtained and repeated. Those images revealed stable successful stenting. At that point, the guiding catheter, the balloon and the guidewire were removed. The sheath was removed. Hemostasis was obtained with deployment of a TR band. There was no immediate complication. The patient was returned to his room in stable condition. The patient had [id number] nausea during the procedure that was improving at the end of the procedure. He received intra-arterial verapamil as well as 5000 units of intravenous heparin as well as Angiomax per protocol. RESULTS: Successful stenting of the proximal segment of the body of the saphenous vein graft to the right coronary artery with reduction of stenosis from 70% to 0%. RECOMMENDATION: Patient will be continued on aspirin, Plavix, beta saira, kinsey inhibitor and statin. The importance of dual antiplatelet treatment were discussed with the patient and his family who are in full understanding and agreement. Duration of procedure is an hour and 6 minutes. MMODL / IJN: [id number] /
--- NOTE | 2017-12-14 15:15 | LTR ---
DATE OF SERVICE: 12/14/[address] Perez: I had the pleasure of performing cardiac catheterization on Mr. Romero at [facility] on December 14, and a full copy of procedure note will be forwarded to you. In brief, he was found to have significant obstructive disease involving the proximal segment of the body of the graft to the right coronary artery. Underwent successful stenting of that vessel. I am hopeful that this procedure will stabilize his status. Thank you again for allowing me to participate in his care. Please feel to call for any questions. Sincerely yours, RICHA / ONOFREN: [id number] /
--- NOTE | 2017-12-14 17:08 | CT ---
EXAMINATION TYPE: CT brain wo con DATE OF EXAM: 12/14/2017 COMPARISON: NONE HISTORY: dizziness, confusion, headache post heart cath CT DLP: 1165 mGycm Automated exposure control for dose reduction was used. FINDINGS: There is cerebral cortical atrophy. There is no mass effect nor midline shift. There is no sign of in tracranial hemorrhage. The calvarium is intact. IMPRESSION: CEREBRAL ATROPHY. NO ACUTE INTRACRANIAL ABNORMALITY.
[2017-12-14] MEDS: oxyCODONE-APAP 10-325MG 1 EACH TAB PO PRN (17:34)
[2017-12-14 18:06] LABS: Glucose,Whole Blood 247 mg/dL (75-99)
[2017-12-14 18:35] LABS: Glucose,Whole Blood 236 mg/dL (75-99)
[2017-12-14] MEDS: INSULIN ASPART 100 UNIT/ML 1 ML 10 ML VIAL SQ SCH ×4 (18:41→21:43)
[2017-12-14] MEDS: DOXAZOSIN 4 MG TAB PO SCH ×2 (19:15→21:33)
[2017-12-14] MEDS: METOPROLOL TARTRATE 25 MG TAB PO SCH (19:16)
[2017-12-14] MEDS: LISINOPRIL 20 MG TAB PO SCH (19:16)
[2017-12-14] MEDS: IPRATROPIUM 0.5 MG/2.5 ML NEBU INHALATION SCH (20:28)
[2017-12-14] MEDS: SYMBICORT 160-4.5 MCG INHALER INHALATION SCH (20:29)
[2017-12-14 20:59] LABS: Glucose,Whole Blood 196 mg/dL (75-99)
[2017-12-14] MEDS ORDERED: INSULIN DETEMIR 100 UNIT/ML 10 ML VIAL SQ SCH (21:00)
[2017-12-14] MEDS: DOCUSATE 100 MG CAP PO SCH (21:34)
[2017-12-14] MEDS: ATORVASTATIN 40 MG TAB PO SCH (21:34)
[2017-12-14] MEDS: traZODone HCL 50 MG TAB PO SCH (21:40)
[2017-12-14] MEDS: hydrOXYzine HCL 25 MG TAB PO SCH (21:40)
[2017-12-15] MEDS: oxyCODONE-APAP 10-325MG 1 EACH TAB PO PRN ×2 (05:58→17:29)
[2017-12-15 06:26] LABS: Calcium 9.3 mg/dL (8.4-10.2); Potassium 4.4 mmol/L (3.5-5.1)
[2017-12-15 06:33] LABS: Glucose,Whole Blood 177 mg/dL (75-99)
[2017-12-15] MEDS: INSULIN ASPART 100 UNIT/ML 1 ML 10 ML VIAL SQ SCH ×5 (07:04→21:01)
[2017-12-15] MEDS: SYMBICORT 160-4.5 MCG INHALER INHALATION SCH ×2 (07:59→20:18)
[2017-12-15] MEDS: IPRATROPIUM 0.5 MG/2.5 ML NEBU INHALATION SCH ×2 (07:59→11:28)
[2017-12-15] MEDS: METOPROLOL TARTRATE 25 MG TAB PO SCH ×2 (08:02→21:00)
[2017-12-15] MEDS: DOCUSATE 100 MG CAP PO SCH ×2 (08:02→21:00)
[2017-12-15] MEDS: ISOSORBIDE MONONITRATE ER 30 MG TAB.ER.24H PO SCH (08:02)
[2017-12-15] MEDS: LISINOPRIL 20 MG TAB PO SCH (08:02)
[2017-12-15] MEDS: ASPIRIN 81 MG PO SCH (08:02)
[2017-12-15] MEDS: FENOFIBRATE 160 MG TAB PO SCH (08:02)
[2017-12-15] MEDS: CLOPIDOGREL 75 MG TAB PO SCH (08:02)
[2017-12-15 08:10] LABS: Glucose,Whole Blood 206 mg/dL (75-99)
--- NOTE | 2017-12-15 08:28 | PN ---
PROGRESS NOTE Mr. Romero is a 67-year-old male who presented with symptoms of chest discomfort. He has a known history of coronary artery disease, status post coronary artery bypass grafting and percutaneous revascularization. He was found to have significant obstructive disease involving the proximal segment of the saphenous vein graft to the right coronary artery, underwent stenting of that vessel. Postprocedure, he had episode of nausea and vomiting that subsequently resolved. He is feeling well this morning. His breathing is stable. He is denying any chest pain. No dizziness. No palpitation. He denies any nausea. He continues to be on aspirin once a day, Lipitor 40 mg daily, Plavix 75 mg daily, doxazosin 8 mg daily, fenofibrate 160 mg daily, insulin, isosorbide mononitrate 30 mg daily, lisinopril 20 mg daily, metoprolol tartrate 25 mg twice a day, and trazodone. PHYSICAL EXAMINATION: Blood pressure 139/60 with the heart rate in the 70s. LUNGS: With few rhonchi. HEART: Regular rate and rhythm. S1, S2. No S3 with systolic murmur. No diastolic murmur. ABDOMEN: Soft, nontender, obese. EXTREMITIES: No edema. Left radial pulse intact. EKG shows no acute changes. LAB DATA: Lab data revealed BUN and creatinine 19 and 1.19, potassium 4.4. IMPRESSION: 1. Status post stenting of the saphenous vein graft to the right coronary artery. 2. Status post coronary artery bypass grafting and percutaneous revascularization of the left anterior descending artery in the past. 3. Peripheral vascular disease. 4. Hypertension. 5. Hyperlipidemia. 6. Chronic tobacco use. RECOMMENDATION: From the cardiac standpoint, he should be able to be discharged home today and followed as an outpatient. MMODL / IJN: [id number] /
[2017-12-15] MEDS: INSULIN DETEMIR 100 UNIT/ML 10 ML VIAL SQ SCH ×2 (08:32→21:03)
[2017-12-15 09:40] LABS: Glucose,Whole Blood 178 mg/dL (75-99)
[2017-12-15 10:14] VITALS: BMI 33.9
[2017-12-15 12:00] LABS: HCT 43.7 % (39.0-53.0); HGB 14.6 gm/dL (13.0-17.5); MCH 30.9 pg (25.0-35.0); MCHC 33.5 g/dL (31.0-37.0); MCV 92.2 fL (80.0-100.0); Platelet Count 176 k/uL (150-450); RBC 4.74 m/uL (4.30-5.90); RDW 15.2 % (11.5-15.5); WBC 7.4 k/uL (3.8-10.6)
[2017-12-15 12:10] LABS: Glucose,Whole Blood 158 mg/dL (75-99)
[2017-12-15] MEDS ORDERED: IPRATROPIUM-ALBUTEROL 3 ML NEB INHALATION PRN ×2 (13:15→13:16)
--- NOTE | 2017-12-15 13:27 | P.CONS ---
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 Also history of obstructive sleep apnea. Patient presented to the hospital for a heart catheterization on 12/14/2017 he is known to have a significant obstructive disease involving the proximal segment of the body of the graft of the right coronary artery and underwent successful stenting of that vessel. Post procedure patient was having dizziness nausea and vomiting and headache with confusion. There is concerns that maybe was anesthesia related. And patient underwent a computed tomography scan of the brain showing cerebral atrophy. No acute intracranial abnormality. Patient was initially going to be discharged today however we have been consulted because patient's symptoms of dizziness and unsteadiness continued. There is no evidence of orthostatic hypotension. Upon my exam patient is complaining of double vision when he goes to sit or stand up. also mentioned that patient has been trying to wean down on his Percocets usually only taking 1-2 tablets a day. He did receive Percocets last night and this morning. No evidence of any hypoglycemia. Blood sugars are mostly been in the 150s there is an occasional 200. Hemoglobin is stable at 14.6. BUN and creatinine within normal range. No admit for electrolyte abnormality. Patient denies any chest pain or shortness of breath. Denies any bowel movement changes. Denies any urinary symptoms. Denies any numbness or tingling on one side of the body. Denies any facial droop or slurred speech. Currently not having a headache. He is alert and orientated to 3. Patient has been complaining of some neck pain but felt likely was related to sleeping in the hospital but. Does have a known history of chronic back pain. Review of Systems Please refer to HPI otherwise unremarkable Past Medical History Past Medical History: Asthma, Coronary Artery Disease (CAD), Cancer, Chest Pain / Angina, COPD, Diabetes Mellitus, Hyperlipidemia, Hypertension, Myocardial Infarction (OK), Skin Disorder, Sleep Apnea/CPAP/BIPAP Additional Past Medical History / Comment(s): lower back pain with sciatica, hx bladder /ureter cancer, pt states skin disorder d/t exposure to agent orange in [place], degenerative disks Last Myocardial Infarction Date:: 1996 History of Any Multi-Drug Resistant Organisms: None Reported Past Surgical History: Bladder Surgery, Coronary Bypass/CABG, Heart Catheterization With Stent Additional Past Surgical History / Comment(s): heart stent x 3, aortogram, AAA surgery, colonoscopy, ureter surgery for cancer, CAGB 1996, stent left leg, surgery to cut uvula Past Anesthesia/Blood Transfusion Reactions: No Reported Reaction Date of Last Stent Placement:: 2010 Past Psychological History: Anxiety, Depression, PTSD Additional Psychological History / Comment(s): PTSD from Smoking Status: Current every day smoker Past Alcohol Use History: None Reported Additional Past Alcohol Use History / Comment(s): started smoking at age 14 smokes 1 1/2 ppd. Past Drug Use History: None Reported - Past Family History Father Family Medical History: No Reported History Brother(s) Family Medical History: Cancer Mother Family Medical History: Cancer Additional Family Medical History / Comment(s): lung cancer Medications and Allergies Home Medications Medication Instructions Recorded Confirmed Type Atorvastatin [Lipitor] 40 mg PO HS 06/09/15 12/14/17 History Clopidogrel [Plavix] 75 mg PO DAILY 06/09/15 12/14/17 History Doxazosin Mesylate 8 mg PO HS 06/09/15 12/14/17 History Enalapril Maleate [Vasotec] 5 mg PO BID 06/09/15 12/14/17 History Fenofibrate [Lofibra] 160 mg PO DAILY 06/09/15 12/14/17 History Insulin Aspart [NovoLOG 25 unit SQ AC-TID PRN 06/09/15 12/14/17 History (formulary)] Insulin Glargine [Lantus] 70 unit SQ BID 06/09/15 12/14/17 History Metoprolol Tartrate [Lopressor] 25 mg PO BID 06/09/15 12/14/17 History Tiotropium Balmorhea [Spiriva] 18 mcg INHALATION HS 06/09/15 12/14/17 History Albuterol Nebulized [Ventolin 2.5 mg INHALATION Q6HR PRN 11/11/15 12/14/17 History Nebulized] hydrOXYzine HCL 25 mg PO HS 11/11/15 12/14/17 History oxyCODONE-APAP 10-325MG [Percocet 1 tab PO Q8H PRN 11/11/15 12/14/17 History 10-325 mg] traZODone HCL [Desyrel] 25 mg PO HS 11/11/15 12/14/17 History Docusate [Colace] 100 mg PO BID 05/03/17 12/14/17 History Nitroglycerin Sl Tabs [Nitrostat] 0.4 mg SUBLINGUAL Q5M PRN 05/03/17 12/14/17 History Albuterol Sulfate [Proair Hfa] 1 - 2 puff INHALATION Q6HR PRN 12/13/17 12/14/17 History Budesonide-Formot 160-4.5 Mcg 2 puff INHALATION BID 12/13/17 12/14/17 History [Symbicort 160-4.5 Mcg Inhaler] Aspirin 81 mg PO DAILY chew 12/15/17 Rx Isosorbide Mononitrate ER [Imdur] 30 mg PO DAILY tab.er.24h 12/15/17 Rx Allergies Allergy/AdvReac Type Severity Reaction Status Date / Time cephalexin monohydrate Allergy Unknown Verified 12/14/17 11:10 [From Keflex] divalproex sodium Allergy Unknown Verified 12/14/17 11:10 erythromycin base Allergy Unknown Verified 12/14/17 11:10 fluvoxamine maleate Allergy Unknown Verified 12/14/17 11:10 [From Luvox] mirtazapine Allergy Unknown Verified 12/14/17 11:10 moxifloxacin HCl Allergy Itching Verified 12/14/17 11:10 [From Avelox] paroxetine HCl [From Paxil] Allergy Unknown Verified 12/14/17 11:10 Penicillins Allergy Unknown Verified 12/14/17 11:10 Sulfa (Sulfonamide Allergy Unknown Verified 12/14/17 11:10 Antibiotics) venlafaxine Allergy Unknown Verified 12/14/17 11:10 zolpidem Allergy Unknown Verified 12/14/17 11:10 Physical Exam Vitals: Vital Signs Temp Pulse Pulse Resp BP Pulse Ox 12/15/17 11:56 97.1 F L 65 16 139/73 95 12/15/17 11:38 67 12/15/17 11:28 65 12/15/17 10:53 60 16 141/72 94 L 12/15/17 08:00 97.8 F 77 16 171/78 90 L 12/15/17 04:00 97.4 F L 76 18 139/69 93 L 12/15/17 00:00 97.7 F 72 18 136/65 94 L 12/14/17 20:44 72 12/14/17 20:31 71 96 12/14/17 20:00 97.0 F L 77 18 190/84 95 12/14/17 18:59 96.5 F L 63 18 172/83 97 12/14/17 17:43 68 18 156/78 95 12/14/17 16:45 67 18 158/70 95 12/14/17 15:45 62 18 158/74 95 12/14/17 15:15 64 18 170/60 94 L 12/14/17 14:45 80 18 140/68 92 L 12/14/17 14:30 64 18 154/72 92 L 12/14/17 14:15 66 18 158/72 92 L 12/14/17 14:00 80 18 175/72 92 L 12/14/17 13:45 72 18 180/76 95 Intake and Output 12/14/17 12/15/17 12/15/17 22:59 06:59 14:59 Intake Total 1000 240 Output Total 700 600 Balance -700 400 240 Intake: Intake, IV Titration 1000 Amount Sodium Chloride 0.9% 1, 1000 000 ml @ 100 mls/hr IV . Q10H [facility] Rx#:[id number] Oral 240 Output: Urine 700 600 Other: Voiding Method Urinal Urinal # Voids 1 Weight 117.934 kg 116.7 kg 116.7 kg Head normocephalic Neck supple Lungs clear to auscultation bilaterally no wheezing or crackles Heart regular rate and rhythm S1-S2, no rub or gallop Abdomen is soft nontender nondistended positive bowel sounds no hepatosplenomegaly Extremities no edema Neuro alert and orientated to 3. No facial droop or slurred speech. 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 strength equal bilaterally Results CBC & Chem 7: 12/15/17 05:31 12/15/17 05:31 Labs: Abnormal Lab Results - Last 24 Hours (Table) 12/14/17 12/14/17 12/14/17 Range/Units 13:53 17:55 18:32 Chloride (98-107) mmol/L Glucose (74-99) mg/dL POC Glucose (mg/dL) 213 H 247 H 236 H (75-99) mg/dL 12/14/17 12/15/17 12/15/17 Range/Units 20:49 05:31 06:29 Chloride 110 H (98-107) mmol/L Glucose 157 H (74-99) mg/dL POC Glucose (mg/dL) 196 H 177 H (75-99) mg/dL 12/15/17 12/15/17 12/15/17 Range/Units 08:07 09:39 11:26 Chloride (98-107) mmol/L Glucose (74-99) mg/dL POC Glucose (mg/dL) 206 H 178 H 158 H (75-99) mg/dL Assessment and Plan Assessment: 1. Coronary artery disease with previous CABG. Status post heart catheterization with stenting of the saphenous vein graft to the right coronary artery 2. Episodes of dizziness with blurred vision, unsteady balance and nausea. No evidence of orthostatic hypotension. Computed tomography scan of the brain was negative for any acute changes. No evidence of hypoglycemia or significant electrolyte abnormality. No evidence of anemia. Possibly symptoms related to pain medication and anesthesia. Check carotid ultrasound. Decrease dose of Percocet to every 12 hours as needed 3. Nicotine dependence discussed smoking cessation for greater than 3 minutes. Start nicotine patch 4. Peripheral vascular disease with stent to the left lower extremity 5. COPD stable 6. Obstructive sleep apnea continue with CPAP 7. Essential hypertension 8. Hyperlipidemia 9. Diabetes mellitus type 2: Continue with current insulin and sliding scale. No evidence of hypoglycemia 10. History of bladder and ureter cancer status post surgical treatment in 2005 11. Chronic back pain GI prophylaxis Protonix and DVT prophylaxis Lovenox Thank you for this consultation. We will continue to follow along with you. Time with Patient: Greater than 30 (Greater than 60% of the total time spent in counseling and coordination of care.I performed an examination of the patient and discussed their management with the physician Curtain Stretcher Assembler. I have reviewed the Physician Curtain Stretcher Assembler's notes and agree with the documented findings and plan of care)
[2017-12-15] MEDS: ONDANSETRON 4 MG/2 ML VIAL IVP PRN (14:50)
[2017-12-15] MEDS: PANTOPRAZOLE 40 MG TABLET PO SCH (14:51)
[2017-12-15] MEDS: NICOTINE 21MG/24HR PATCH TRANSDERM SCH (14:51)
[2017-12-15] MEDS: IPRATROPIUM-ALBUTEROL 3 ML NEB INHALATION SCH ×2 (16:12→20:18)
[2017-12-15 16:33] LABS: Glucose,Whole Blood 196 mg/dL (75-99)
[2017-12-15 20:33] LABS: Hemoglobin A1C 8.7 % (4.0-6.0)
[2017-12-15 20:51] LABS: Glucose,Whole Blood 181 mg/dL (75-99)
[2017-12-15] MEDS: ATORVASTATIN 40 MG TAB PO SCH (21:00)
[2017-12-15] MEDS: hydrOXYzine HCL 25 MG TAB PO SCH (21:00)
[2017-12-15] MEDS: traZODone HCL 50 MG TAB PO SCH (21:00)
[2017-12-15] MEDS: METOCLOPRAMIDE 5 MG TAB PO SCH (21:01)
[2017-12-16] MEDS: oxyCODONE-APAP 10-325MG 1 EACH TAB PO PRN (00:12)
[2017-12-16] MEDS: ONDANSETRON 4 MG/2 ML VIAL IVP PRN (00:34)
[2017-12-16 06:16] LABS: Glucose,Whole Blood 180 mg/dL (75-99)
[2017-12-16] MEDS: INSULIN ASPART 100 UNIT/ML 1 ML 10 ML VIAL SQ SCH ×7 (06:43→21:58)
[2017-12-16] MEDS: SYMBICORT 160-4.5 MCG INHALER INHALATION SCH ×2 (07:01→20:08)
[2017-12-16] MEDS: IPRATROPIUM-ALBUTEROL 3 ML NEB INHALATION SCH ×4 (07:01→20:08)
--- NOTE | 2017-12-16 09:15 | US ---
EXAMINATION TYPE: US carotid duplex BILAT DATE OF EXAM: 12/16/2017 COMPARISON: NONE CLINICAL HISTORY: dizziness. Double vision, HTN, DM EXAM MEASUREMENTS: RIGHT: Peak Systolic Velocity (PSV) cm/sec ----- Right CCA: 65.7 ----- Right ICA: 72.1 ----- Right ECA: 113.8 ICA/CCA ratio: 1.1 RIGHT: End Diastole cm/sec ----- Right CCA: 15.8 ----- Right ICA: 20.7 ----- Right ECA: 12.1 LEFT: Peak Systolic Velocity (PSV) cm/sec ----- Left CCA: 65.0 ----- Left ICA: 69.1 ----- Left ECA: 117.6 ICA/CCA ratio: 1.1 LEFT: End Diastole cm/sec ----- Left CCA: 16.7 ----- Left ICA: 17.8 ----- Left ECA: 15.6 VERTEBRALS (direction of flow): Right Vertebral: Antegrade Left Vertebral: Antegrade Rhythm: Normal Difficult study due to patient heavy breathing Bilateral intimal thickening, plaque bilateral bulb and proximal ICA, no elevated velocities, no sign ificant stenosis. IMPRESSION: 1. Intimal thickening and bilateral plaque with no significant hemodynamic stenosis bilaterally. Criteria for Assigning % of Stenosis / Diameter reduction (Estimation based on the indirect measurements of the internal carotid artery velocities (ICA PSV). 1. Normal (no stenosis)=ICA PSV < 125 cm/s: ratio < 2.0: ICA EDV<40 cm/s. 2. Less than 50% stenosis=ICA PSV < 125 cm/s: ratio < 2.0: ICA EDV<40 cm/s. 3. 50 to 69% stenosis=ICA PSV of 125 to 230 cm/s: ration 2.0 ? 4.0: ICA EDV 40-100 cm/s. 4. Greater than 70% stenosis to near occlusion= ICA PSV > 230 cm/s: ratio > 4.0: ICA EDV > 100 cm/s. 5. Near occlusion= ICA PSV velocities may be low or undetectable: variable ratio and ICA EDV. 6. Total occlusion=unable to detect flow.
--- NOTE | 2017-12-16 09:29 | US ---
EXAMINATION TYPE: US liver DATE OF EXAM: 12/16/2017 COMPARISON: US 2018 CLINICAL HISTORY: nausea/vomiting. N/V x 3 days EXAM MEASUREMENTS: Liver Length: 21.9 cm Gallbladder Wall: 0.2 cm CBD: 0.4 cm Right Kidney: 10.4 x 6.1 x 6.2 cm Difficult and limited study due to patient body habitus Pancreas: obscured by overlying midline bowel gas Liver: enlarged, increased attenuation, increased echogenicity, course echotexture Gallbladder: hyperechoic echoes along posterior wall Evidence for sonographic Iniguez's sign: no CBD: visualized portions wnl Right Kidney: wnl IMPRESSION: 1. Hepatomegaly. Some mild to moderate fatty infiltration may be present. 2. Small gallstones. 3. Examination has limitation.
[2017-12-16] MEDS: SODIUM CHLORIDE 0.9% 1,000 ML IV SCH (10:00)
[2017-12-16] MEDS: ENOXAPARIN 40 MG/0.4 ML SYRINGE SQ SCH (10:13)
[2017-12-16] MEDS: ASPIRIN 81 MG PO SCH (10:13)
[2017-12-16] MEDS: CLOPIDOGREL 75 MG TAB PO SCH (10:13)
[2017-12-16] MEDS: PANTOPRAZOLE 40 MG TABLET PO SCH (10:13)
[2017-12-16] MEDS: FENOFIBRATE 160 MG TAB PO SCH (10:13)
[2017-12-16] MEDS: DOCUSATE 100 MG CAP PO SCH ×2 (10:13→20:40)
[2017-12-16] MEDS: INSULIN DETEMIR 100 UNIT/ML 10 ML VIAL SQ SCH ×2 (10:14→21:58)
[2017-12-16] MEDS: ISOSORBIDE MONONITRATE ER 30 MG TAB.ER.24H PO SCH (10:14)
[2017-12-16] MEDS: LISINOPRIL 20 MG TAB PO SCH (10:14)
[2017-12-16] MEDS: METOPROLOL TARTRATE 25 MG TAB PO SCH ×2 (10:14→20:40)
[2017-12-16] MEDS: METOCLOPRAMIDE 5 MG TAB PO SCH ×3 (10:14→21:58)
[2017-12-16] MEDS: NICOTINE 21MG/24HR PATCH TRANSDERM SCH (10:15)
[2017-12-16 10:19] LABS: Basophils % (A) 1 %; Eosinophils # (A) 0.1 k/uL (0-0.7); Eosinophils % (A) 1 %; HCT 44.5 % (39.0-53.0); HGB 14.9 gm/dL (13.0-17.5); Lymphocytes # (A) 1.4 k/uL (1.0-4.8); Lymphocytes % (A) 18 %; MCH 30.7 pg (25.0-35.0); MCHC 33.6 g/dL (31.0-37.0); MCV 91.4 fL (80.0-100.0); Mean Platelet Volume 7.6; Monocytes # (A) 0.5 k/uL (0-1.0); Monocytes % (A) 6 %; Neutrophils # (A) 5.6 k/uL (1.3-7.7); Neutrophils % (A) 74 %; Platelet Count 174 k/uL (150-450); RBC 4.87 m/uL (4.30-5.90); RDW 14.6 % (11.5-15.5); WBC 7.6 k/uL (3.8-10.6)
--- NOTE | 2017-12-16 10:24 | P.PN ---
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 Also history of obstructive sleep apnea. Patient presented to the hospital for a heart catheterization on 12/14/2017 he is known to have a significant obstructive disease involving the proximal segment of the body of the graft of the right coronary artery and underwent successful stenting of that vessel. Post procedure patient was having dizziness nausea and vomiting and headache with confusion. There is concerns that maybe was anesthesia related. And patient underwent a computed tomography scan of the brain showing cerebral atrophy. No acute intracranial abnormality. Patient was initially going to be discharged today however we have been consulted because patient's symptoms of dizziness and unsteadiness continued. There is no evidence of orthostatic hypotension. Upon my exam patient is complaining of double vision when he goes to sit or stand up. also mentioned that patient has been trying to wean down on his Percocets usually only taking 1-2 tablets a day. He did receive Percocets last night and this morning. No evidence of any hypoglycemia. Blood sugars are mostly been in the 150s there is an occasional 200. Hemoglobin is stable at 14.6. BUN and creatinine within normal range. No admit for electrolyte abnormality. Patient denies any chest pain or shortness of breath. Denies any bowel movement changes. Denies any urinary symptoms. Denies any numbness or tingling on one side of the body. Denies any facial droop or slurred speech. Currently not having a headache. He is alert and orientated to 3. Patient has been complaining of some neck pain but felt likely was related to sleeping in the hospital but. Does have a known history of chronic back pain. 12/16/2017 patient had nausea and vomiting multiple episodes through the night. Liver ultrasound ordered results showing hepatomegaly. Some mild to moderate fatty infiltration may be present. Small gallstones. Patient also still complaining of feeling dizzy headache and having double vision. Carotid Doppler showed no significant hemodynamic stenosis. A1c is 8.7. GI service will be consulted. Denies any bowel movement changes. Denies any urinary symptoms. Denies any chest pain or shortness of breath. Objective - Vital Signs Vital signs: Vital Signs Temp 97.8 F 12/15/17 20:00 Pulse 72 12/16/17 07:14 Resp 16 12/16/17 04:00 BP 168/79 12/16/17 04:00 Pulse Ox 95 12/16/17 07:03 Intake & Output 12/15/17 12/16/17 12/16/17 18:59 06:59 18:59 Intake Total 240 Output Total 600 900 Balance -360 -900 Weight 116.7 kg 119 kg Intake: Oral 240 Output: Urine 600 600 Emesis 300 Other: Voiding Method Urinal # Voids 1 - Exam Head normocephalic Neck supple Lungs clear to auscultation bilaterally no wheezing or crackles Heart regular rate and rhythm S1-S2, no rub or gallop Abdomen is soft nontender nondistended positive bowel sounds no hepatosplenomegaly Extremities no edema Neuro alert and orientated to 3. Sleepy. Has CPAP on. Arousable and able to answer questions. - Labs CBC & Chem 7: 12/15/17 05:31 12/15/17 05:31 Labs: Abnormal Lab Results - Last 24 Hours (Table) 12/15/17 12/15/17 12/15/17 Range/Units 05:31 11:26 16:14 POC Glucose (mg/dL) 158 H 196 H (75-99) mg/dL Hemoglobin A1c 8.7 H (4.0-6.0) % 12/15/17 12/16/17 Range/Units 20:49 06:12 POC Glucose (mg/dL) 181 H 180 H (75-99) mg/dL Hemoglobin A1c (4.0-6.0) % Assessment and Plan Assessment: 1. Coronary artery disease with previous CABG. Status post heart catheterization with stenting of the saphenous vein graft to the right coronary artery 2. Episodes of dizziness with blurred vision, unsteady balance and nausea. No evidence of orthostatic hypotension. Computed tomography scan of the brain was negative for any acute changes. No evidence of hypoglycemia or significant electrolyte abnormality. No evidence of anemia. Possibly symptoms related to pain medication and anesthesia. Decrease dose of Percocet to every 12 hours as needed. Carotid ultrasound no significant hemodynamic stenosis. Patient had nausea and multiple episodes of vomiting through the night. Liver ultrasound showing hepatomegaly and small gallstones. GI service will be consulted. Continue Zofran. We'll switch Protonix to IV. Start patient on normal saline at 50 mL an hour. Continue to monitor. 3. Nicotine dependence discussed smoking cessation for greater than 3 minutes. Start nicotine patch 4. Peripheral vascular disease with stent to the left lower extremity 5. COPD stable 6. Obstructive sleep apnea continue with CPAP 7. Essential hypertension 8. Hyperlipidemia 9. Diabetes mellitus type 2: Continue with current insulin and sliding scale. No evidence of hypoglycemia 10. History of bladder and ureter cancer status post surgical treatment in 2005 11. Chronic back pain GI prophylaxis Protonix and DVT prophylaxis Lovenox
[2017-12-16 10:30] LABS: Albumin 3.9 g/dL (3.5-5.0); Calcium 9.4 mg/dL (8.4-10.2); Potassium 4.1 mmol/L (3.5-5.1); Total Bilirubin 0.4 mg/dL (0.2-1.3); Total Protein 6.3 g/dL (6.3-8.2)
--- NOTE | 2017-12-16 10:33 | CDI ---
Last Revision, May 2017 Documentation Clarification Form Date: 12/16/2017 10:31:00 AM From: Shiloh BojorquezMuellerCHELO, CCDS Admit Date: 12/15/2017 4:08:00 PM Patient Name: Shiva Romero Visit Number: [id number] Discharge Date: ATTENTION: The Clinical Documentation Specialists (CDI) and [facility] Coding Staff appreciate your assistance in clarifying documentation. Please respond to the clarification below the line at the bottom and electronically sign. The CDI & [facility] Coding staff will review the response and follow-up if needed. Please note: Queries are made part of the Legal Health Record. If you have any questions, please contact the author of this message via ITS. Dr. Iván Perez: Per the medical consult 12/15, the patient developed episodes of dizziness with blurred vision, nausea with vomiting and a headache after having a left heart catheterization & PTCA w/stent. Patients Admitting Diagnosis: CAD w/previous CABG. Post-Operative Diagnosis: Chronic occluded RCA, Patent saphenous vein graft to RCA w/significant stenosis in the proximal segment of the body of the graft. Mild-moderate disease in LAD & left circumflex. Procedure performed: Left Heart Catheterization with PTCA & stent to proximal segment of the body of the saphenous vein graft to the RCA. History/Risk Factors: CAD, Hypertension, Nicotine dependence, DM II, Hyperlipidemia & COPD. Clinical Indicators: Symptoms as described above. Treatment: Percocet decreased, IV Zofran, po Reglan, IV Protonix, IV fluid rate 50, discharge held. In order to accurately reflect this patients severity of illness, please clarify if the post-operative diagnosis is: An expected post-procedural or post-surgical condition; An unexpected post-procedural or post-surgical condition related to surgical care; Other, please specify Unable to determine Please continue to document in your progress notes and discharge summary in order to capture severity of illness and risk of mortality. Include clinical findings that support your diagnosis. An unexpected postprocedural condition related to surgical care MTDD
[2017-12-16 11:55] LABS: Glucose,Whole Blood 181 mg/dL (75-99)
[2017-12-16] MEDS ORDERED: DULoxetine HCL 60 MG CAPSULE.DR PO SCH (12:15)
[2017-12-16 17:03] LABS: Glucose,Whole Blood 162 mg/dL (75-99)
[2017-12-16] MEDS: ACETAMINOPHEN TAB 325 MG TAB PO PRN (17:29)
[2017-12-16] MEDS: DOXAZOSIN 4 MG TAB PO SCH (20:40)
[2017-12-16] MEDS: ATORVASTATIN 40 MG TAB PO SCH (20:40)
[2017-12-16] MEDS: hydrOXYzine HCL 25 MG TAB PO SCH (20:40)
[2017-12-16] MEDS: traZODone HCL 50 MG TAB PO SCH (20:41)
[2017-12-16 20:51] LABS: Glucose,Whole Blood 188 mg/dL (75-99)
[2017-12-17 06:12] LABS: Glucose,Whole Blood 131 mg/dL (75-99)
[2017-12-17] MEDS: INSULIN ASPART 100 UNIT/ML 1 ML 10 ML VIAL SQ SCH ×4 (06:51→12:20)
[2017-12-17] MEDS: SODIUM CHLORIDE 0.9% 1,000 ML IV SCH (06:52)
[2017-12-17] MEDS: IPRATROPIUM-ALBUTEROL 3 ML NEB INHALATION SCH ×2 (07:32→11:20)
[2017-12-17] MEDS: SYMBICORT 160-4.5 MCG INHALER INHALATION SCH (07:33)
[2017-12-17] MEDS: METOPROLOL TARTRATE 25 MG TAB PO SCH (08:20)
[2017-12-17] MEDS: ASPIRIN 81 MG PO SCH (08:20)
[2017-12-17] MEDS: METOCLOPRAMIDE 5 MG TAB PO SCH (08:20)
[2017-12-17] MEDS: CLOPIDOGREL 75 MG TAB PO SCH (08:20)
[2017-12-17] MEDS: LISINOPRIL 20 MG TAB PO SCH (08:20)
[2017-12-17] MEDS: ISOSORBIDE MONONITRATE ER 30 MG TAB.ER.24H PO SCH (08:20)
[2017-12-17] MEDS: DOCUSATE 100 MG CAP PO SCH (08:20)
[2017-12-17] MEDS: NICOTINE 21MG/24HR PATCH TRANSDERM SCH (08:21)
[2017-12-17] MEDS: ONDANSETRON 4 MG/2 ML VIAL IVP PRN (08:21)
[2017-12-17] MEDS: FENOFIBRATE 160 MG TAB PO SCH (08:21)
[2017-12-17] MEDS: INSULIN DETEMIR 100 UNIT/ML 10 ML VIAL SQ SCH (08:21)
[2017-12-17] MEDS: ENOXAPARIN 40 MG/0.4 ML SYRINGE SQ SCH (08:21)
[2017-12-17] MEDS ORDERED: PANTOPRAZOLE 40 MG/10 ML VIAL IVP SCH (09:00)
[2017-12-17 11:47] VITALS: BP 132/67; PULSE 54; RESP 20; TEMP 98
[2017-12-17 12:07] LABS: Glucose,Whole Blood 163 mg/dL (75-99)
--- NOTE | 2017-12-17 13:09 | PN ---
PROGRESS NOTE Mr. Shiva Romero is a patient of Dr. Alford and Dr. Ackerman who underwent coronary artery stenting. He was supposed to be discharged yesterday, but he became very nauseous, and the nausea was quite persistent. Therefore he was observed on telemetry for the next 24 to 48 hours. Today he feels a lot better. He was using his CPAP mask when I saw him. He was lying flat in bed and comfortable. His nausea has improved. He does not have any abdominal pain. No chest discomfort, dizziness, lightheadedness or shortness of breath. His labs were reviewed. His white count is normal. Hemoglobin is normal. BUN is 21, creatinine 1.1. Electrolytes are normal. His vitals are stable. He is afebrile. His pulse rate is in the 60s and 70s. Respirations are normal. Blood pressure 132/67 mmHg. Breath sounds are reduced bilaterally, but there are no rhonchi, no crackles. Normal breath sounds are audible. Heart sounds S1, S2 are normal. Abdomen is soft. Extremities are warm. No edema. IMPRESSION: 1. Coronary artery disease, status post coronary artery stenting. 2. Nausea of an unclear etiology with normal EKG and normal CT. SUGGEST: The patient may go home from a cardiac standpoint today and follow up with Dr. Alford as scheduled. He should continue his medications prescribed by Dr. Alford, including aspirin, atorvastatin, Plavix, fenofibrate, lisinopril and metoprolol. MMODL / IJN: [id number] /
[2017-12-17] MEDS: ACETAMINOPHEN TAB 325 MG TAB PO PRN (13:17)
== END 2017-12-17 15:37 | disposition home or self-care (01) | DRG 982 ==
LOC: CATHCVL 10:48 → 6SEL 13:26 → CATHCVL 12-15 16:07 → 6SEL 12-15 16:08
PROVIDERS: ADMIT Internal Medicine Interventional Cardiology; ATTEND Internal Medicine Interventional Cardiology
PROC: B2111ZZ Fluoroscopy of Multiple Coronary Arteries using Low Osmolar Contrast (ICD-10-PCS; 2017-12-14)
PROC: B2121ZZ Fluoroscopy of Single Coronary Artery Bypass Graft using Low Osmolar Contrast (ICD-10-PCS; 2017-12-14)
PROC: 027034Z Dilation of Coronary Artery, One Artery with Drug-eluting Intraluminal Device, Percutaneous Approach (ICD-10-PCS; principal; 2017-12-14 12:15)
PROC: 4A023N7 Measurement of Cardiac Sampling and Pressure, Left Heart, Percutaneous Approach (ICD-10-PCS; 2017-12-14 12:15)
DX: R42 Dizziness and giddiness (principal); I25.710 Atherosclerosis of autologous vein coronary artery bypass graft(s) with unstable angina pectoris; R11.2 Nausea with vomiting, unspecified; H53.2 Diplopia; E11.51 Type 2 diabetes mellitus with diabetic peripheral angiopathy without gangrene; I25.82 Chronic total occlusion of coronary artery; R16.0 Hepatomegaly, not elsewhere classified; J44.9 Chronic obstructive pulmonary disease, unspecified; F17.210 Nicotine dependence, cigarettes, uncomplicated; E78.2 Mixed hyperlipidemia; F43.10 Post-traumatic stress disorder, unspecified; G47.33 Obstructive sleep apnea (adult) (pediatric); E66.9 Obesity, unspecified; R01.1 Cardiac murmur, unspecified; G31.9 Degenerative disease of nervous system, unspecified; G89.29 Other chronic pain; I10 Essential (primary) hypertension; I25.2 Old myocardial infarction; K80.20 Calculus of gallbladder without cholecystitis without obstruction; F32.9 Major depressive disorder, single episode, unspecified; F41.9 Anxiety disorder, unspecified; M54.30 Sciatica, unspecified side; M54.2 Cervicalgia; R51 Headache; M54.5 Low back pain; Z65.5 Exposure to disaster, war and other hostilities; Z68.29 Body mass index [BMI] 29.0-29.9, adult; Z77.098 Contact with and (suspected) exposure to other hazardous, chiefly nonmedicinal, chemicals; Z79.02 Long term (current) use of antithrombotics/antiplatelets; Z79.4 Long term (current) use of insulin; Z79.51 Long term (current) use of inhaled steroids; Z79.82 Long term (current) use of aspirin; Z79.899 Other long term (current) drug therapy; Z95.5 Presence of coronary angioplasty implant and graft; Z95.1 Presence of aortocoronary bypass graft; Z85.51 Personal history of malignant neoplasm of bladder; Z85.54 Personal history of malignant neoplasm of ureter; Z86.79 Personal history of other diseases of the circulatory system; Z88.1 Allergy status to other antibiotic agents; Z88.0 Allergy status to penicillin; Z88.2 Allergy status to sulfonamides; Z80.1 Family history of malignant neoplasm of trachea, bronchus and lung
CPT/HCPCS: 70450; 76705; 80048; 80053; 83036; 85025; 85027; 93455; 93880; 94640; 94760

== ENCOUNTER → 2018-01-31 | Outpatient (CLI) | payer MEDICARE ==
--- NOTE | 2018-02-01 12:51 | MR ---
EXAMINATION TYPE: MR brain wo con DATE OF EXAM: 01/31/2018 COMPARISON: CT brain 12/14/2017, MRI brain 08/14/2014 HISTORY: Benign Head tumor CONTRAST: Performed utilizing 0 mL intravenous Gadavist gadolinium contrast. TECHNIQUE: Multiplanar, multiecho imaging on a 3.0 Karolina magnet is performed through the brain. Stud y is performed within 24 hours of arrival to the hospital. The craniovertebral junction is normal. The pituitary is normal. Diffusion-weighted imaging is performed. No abnormal hyperintensity is present to suggest an acute i ntracranial infarct or acute ischemic change. There is hypointensity on T1-weighted sequences and hyperintense and T2-weighted sequences at the inf erior medial right cerebellum. This could reflect prior infarct. This reflects a change from the CT o f the brain of December 14, 2017. Consider repeat CT brain examination for reevaluation. Remaining portions of the brain of normal signal without discrete masses or cysts. There are couple o f punctate subcortical white matter changes which are nonspecific but could be related to microvascul ar ischemic change. Ventricles and sulci are appropriate for the patient age. Fluid-filled left mastoid air cells are present. Correlate for acute left mastoiditis. IMPRESSIONS: 1. Changes within the inferior medial right cerebellum may be related to prior infarct. Consider repe at CT examination for reevaluation. 2. Correlate for acute left mastoiditis.
== END | disposition home or self-care (01) ==
LOC: RADMRIMAIN 11:42
PROVIDERS: ATTEND Psychiatry & Neurology Neurology
DX: G93.89 Other specified disorders of brain (principal); G25.0 Essential tremor
CPT/HCPCS: 70551